=== PATIENT | female | born 2000 | race Caucasian/White ===

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

== ENCOUNTER 2019-03-21 18:04 | Emergency (ER) | payer BC, OTHER ==
[~2019-03-21] VITALS: Ht 162.6 cm; Wt 124.7 kg
[~2019-03-21 18:04] MED LIST changes: +PROMS25 WY RECTAL
[2019-03-21 18:59] LABS: ABSOLUTE NEUTROPHILS 5.4 thou/uL (1.4-8.2); BASOPHILS 0.8 % (0.0-2.0); EOSINOPHILS 14.4 % (0.0-3.0); HEMATOCRIT 37.1 % (37.0-47.0); HEMOGLOBIN 12.5 gm/dL (12.0-15.0); LYMPHOCYTES 17.5 % (24.0-44.0); MCH 28.8 pg (26.0-34.0); MCHC 33.7 g/dL (28.0-37.0); MCV 85.6 fL (80.0-100.0); MONOCYTES 4.2 % (1.0-8.0); PLATELET COUNT 281 thou/uL (150-400); POLYS 63.1 % (36.0-66.0); RBC 4.33 mil/uL (4.20-5.00); RDW 14.1 % (10.5-14.5); WBC 8.6 thou/uL (4.0-11.0)
[2019-03-21 19:05] LABS: CALCIUM 9.3 mg/dL (8.5-10.1); POTASSIUM 4.1 mmol/L (3.5-5.1)
[2019-03-21 19:15] LABS: URINE BILIRUBIN NEGATIVE (Negative); URINE BLOOD 2+ (Negative); URINE CLARITY CLEAR; URINE COLOR YELLOW; URINE GLUCOSE-RANDOM* NEGATIVE (Negative); URINE KETONES NEGATIVE (Negative); URINE LEUKOCYTES-REFLEX 3+ (Negative); URINE NITRITE-REFLEX NEGATIVE (Negative); URINE PROTEIN (DIPSTICK) NEGATIVE (Negative); URINE SPECIFIC GRAVITY <= 1.005 (1.005-1.035); URINE UROBILINOGEN 0.2 E.U./dl (0.2-1.0)
[2019-03-21 19:23] LABS: BACTERIA-REFLEX 1-9 Few /HPF (None Seen); CASTS None Seen /LPF (None Seen); CRYSTALS None Seen /LPF (None Seen); SQUAMOUS 0-3 Few /LPF (0-3); URINE WBC-REFLEX 6-15 Few /HPF (0-5)
[2019-03-21] MEDS ORDERED: BUTALB-APAP-CA1 EACH PO (19:28)
[2019-03-21] MEDS ORDERED: KEFLEX500 M1 PO (19:37)
[2019-03-21 19:54] VITALS: BP 149/73
== END 2019-03-21 19:50 | disposition home or self-care (01) ==
LOC: ER 18:04
PROVIDERS: Nurse Practitioner Family
DX: G43.909 Migraine, unspecified, not intractable, without status migrainosus (principal); N39.0 Urinary tract infection, site not specified; Z88.8 Allergy status to other drugs, medicaments and biological substances

== ENCOUNTER 2019-05-05 20:57 | Emergency (ER) | payer BC, OTHER ==
[~2019-05-05] VITALS: Ht 170.2 cm; Wt 127.0 kg
[~2019-05-05 20:57] MED LIST changes: +BUTALB-APAP-CA1 EACH PO; +KEFLEX500 M1 PO
[2019-05-05 21:15] LABS: URINE BILIRUBIN NEGATIVE (Negative); URINE BLOOD NEGATIVE (Negative); URINE CLARITY CLEAR; URINE COLOR YELLOW; URINE GLUCOSE-RANDOM* NEGATIVE (Negative); URINE KETONES NEGATIVE (Negative); URINE LEUKOCYTES-REFLEX 1+ (Negative); URINE NITRITE-REFLEX NEGATIVE (Negative); URINE PROTEIN (DIPSTICK) NEGATIVE (Negative)
[2019-05-05 21:23] LABS: BACTERIA-REFLEX None Seen /HPF (None Seen); CASTS None Seen /LPF (None Seen); CRYSTALS None Seen /LPF (None Seen); MUCUS 0-3 Light strn/LPF (None Seen); SQUAMOUS 0-3 Few /LPF (0-3); URINE RBC None Seen /HPF (0-2); URINE WBC-REFLEX 0-5 Rare /HPF (0-5)
[2019-05-05 22:56] LABS: ABSOLUTE NEUTROPHILS 5.1 thou/uL (1.4-8.2); BASOPHILS 0.7 % (0.0-2.0); EOSINOPHILS 10.9 % (0.0-3.0); HEMATOCRIT 37.9 % (37.0-47.0); HEMOGLOBIN 12.8 gm/dL (12.0-15.0); LYMPHOCYTES 21.6 % (24.0-44.0); MCH 28.7 pg (26.0-34.0); MCHC 33.7 g/dL (28.0-37.0); MCV 85.3 fL (80.0-100.0); MONOCYTES 5.2 % (1.0-8.0); PLATELET COUNT 310 thou/uL (150-400); POLYS 61.6 % (36.0-66.0); RBC 4.44 mil/uL (4.20-5.00); WBC 8.3 thou/uL (4.0-11.0)
[2019-05-05 23:05] LABS: CREATININE 0.8 mg/dL (0.6-1.0); POTASSIUM 4.4 mmol/L (3.5-5.1)
[2019-05-05 23:11] LABS: ALBUMIN 3.3 g/dL (3.4-5.0); TOTAL BILIRUBIN 0.2 mg/dL (<0.1-1.0); TOTAL PROTEIN 7.4 g/dL (6.4-8.2)
[2019-05-05] MEDS ORDERED: ESCITALOPRAM OX20 MG PO (23:16)
[2019-05-05] MEDS ORDERED: PROMS25 WY RECTAL (23:53)
[2019-05-06 00:33] VITALS: BP 111/56
== END 2019-05-06 00:40 | disposition home or self-care (01) ==
LOC: ER 20:57
PROVIDERS: Emergency Medicine
DX: R19.7 Diarrhea, unspecified (principal); R11.2 Nausea with vomiting, unspecified; R51 Headache; Z88.8 Allergy status to other drugs, medicaments and biological substances

== ENCOUNTER 2019-10-28 01:08 | Emergency (ER) | payer BC, OTHER ==
[~2019-10-28] VITALS: Ht 162.6 cm; Wt 133.8 kg
[~2019-10-28 01:08] MED LIST changes: +ESCITALOPRAM OX20 MG PO
[2019-10-28 01:12] VITALS: BP 131/84
== END 2019-10-28 02:05 | disposition home or self-care (01) ==
LOC: ER 01:08
DX: S46.812A Strain of other muscles, fascia and tendons at shoulder and upper arm level, left arm, initial encounter (principal); Z88.8 Allergy status to other drugs, medicaments and biological substances; W50.0XXA Accidental hit or strike by another person, initial encounter; Y93.89 Activity, other specified; Y92.89 Other specified places as the place of occurrence of the external cause; Y99.8 Other external cause status

== ENCOUNTER 2021-08-26 19:46 | Emergency (ER) | payer MEDICARE, OTHER ==
[2021-08-26 20:24] VITALS: BP 113/69
[2021-08-26] MEDS ORDERED: CLEOCIN HCL150 MG PO (20:39)
[2021-08-26] MEDS ORDERED: CLEOCIN HCL300 MG PO (20:39)
== END 2021-08-26 21:33 | disposition home or self-care (01) ==
LOC: ER 19:46
DX: H00.014 Hordeolum externum left upper eyelid (principal); Z79.899 Other long term (current) drug therapy; Z88.8 Allergy status to other drugs, medicaments and biological substances